=== PATIENT | female | born 1990 | race Two or more races ===

== ENCOUNTER 2020-10-07 11:50 | Outpatient (CLI) | payer OTHER | END 2020-10-07 12:41 | disposition home or self-care (01) | LOC: NST 11:50 | PROVIDERS: ATTEND Obstetrics & Gynecology | DX: Z34.83 Encounter for supervision of other normal pregnancy, third trimester (principal) ==

== ENCOUNTER 2020-11-08 15:30 | Inpatient (IN) | payer OTHER ==
[~2020-11-08] VITALS: Ht 157.5 cm; Wt 68.0 kg
[2020-11-11] MEDS ORDERED: PRENATABS FA T1 EACH PO (08:26)
[2020-11-11] MEDS ORDERED: IRON236 MG PO (08:27)
== END 2020-11-13 12:53 | disposition home or self-care (01) | DRG 807 ==
LOC: LDR 15:30 → OB/GYN 11-11 14:21 → LDR 11-17 15:30
PROVIDERS: ADMIT Obstetrics & Gynecology; ATTEND Obstetrics & Gynecology
PROC: 10E0XZZ Delivery of Products of Conception, External Approach (ICD-10-PCS; principal; 2020-11-11)
PROC: 0KQM0ZZ Repair Perineum Muscle, Open Approach (ICD-10-PCS; 2020-11-11)
PROC: 0W8NXZZ Division of Female Perineum, External Approach (ICD-10-PCS; 2020-11-11)
PROC: 10907ZC Drainage of Amniotic Fluid, Therapeutic from Products of Conception, Via Natural or Artificial Opening (ICD-10-PCS; 2020-11-11)
PROC: 3E033VJ Introduction of Other Hormone into Peripheral Vein, Percutaneous Approach (ICD-10-PCS; 2020-11-11)
PROC: 4A1HXFZ Monitoring of Products of Conception, Cardiac Rhythm, External Approach (ICD-10-PCS; 2020-11-11)
DX: O70.1 Second degree perineal laceration during delivery (principal); Z37.0 Single live birth; Z3A.39 39 weeks gestation of pregnancy

== ENCOUNTER 2020-11-08 17:02 | Outpatient (CLI) | payer OTHER | END 2020-11-08 17:45 | disposition home or self-care (01) | LOC: NST 17:02 | PROVIDERS: ATTEND Obstetrics & Gynecology | DX: Z34.83 Encounter for supervision of other normal pregnancy, third trimester (principal) ==

== ENCOUNTER 2021-03-22 19:13 | Emergency (ER) | payer OTHER ==
[~2021-03-22] VITALS: Ht 157.5 cm; Wt 55.3 kg
[~2021-03-22 19:13] MED LIST: IRON236 MG PO; PRENATABS FA T1 EACH PO
[2021-03-22] MEDS ORDERED: ZITHROMAX500 MG PO (20:43)
[2021-03-22] MEDS ORDERED: ZYRTEC10 MG PO (20:43)
== END 2021-03-22 21:14 | disposition home or self-care (01) ==
LOC: ER 19:13
DX: B34.9 Viral infection, unspecified (principal); Z03.818 Encounter for observation for suspected exposure to other biological agents ruled out